=== PATIENT | female | born 2000 | race Two or more races ===

== ENCOUNTER 2021-07-30 01:53 | Emergency (ER) | payer OTHER, MEDICAID ==
[~2021-07-30] VITALS: Ht 152.4 cm; Wt 56.7 kg
[2021-07-30] MEDS ORDERED: LORazepam 2MG/ML-1ML VIAL ONE (01:58)
[2021-07-30] MEDS ORDERED: LORazepam 2MG/ML-1ML VIAL IM ONE (02:00)
[2021-07-30 02:35] LABS: Basophils # (auto) 0.1 10 ^3/uL (0-0.2); Basophils % (auto) 1.3 % (0.0-2.0); Eosinophils # (auto) 0.1 10 ^3/uL (0-0.8); Eosinophils % (auto) 0.7 % (0.0-7.0); Hematocrit 39.2 % (36.0-46.0); Hemoglobin 13.6 g/dL (12.2-16.2); Lymphocytes # (auto) 2.3 10 ^3/uL (0.4-5.4); Lymphocytes % (auto) 20.5 % (10.0-50.0); Mean Corpuscular Hemoglobin 30.7 pg (28.0-32.0); Mean Corpuscular Hgb Conc. 34.6 g/dL (32.0-36.0); Mean Corpuscular Volume 88.6 fL (80.0-100.0); Monocytes # (auto) 0.3 10 ^3/uL (0-1.3); Monocytes % (auto) 3.1 % (0.0-12.0); Neutrophils # (auto) 8.3 10 ^3/uL (1.6-8.6); Neutrophils % (auto) 74.4 % (37.0-80.0); Nucleated Red Blood Cells % 0.2 %; Red Blood Cells 4.43 10^6/uL (4.0-5.20); Red Cell Distribution Width 13.1 % (11.8-14.3); White Blood Cell 11.1 10^3/uL (4.4-10.8)
[2021-07-30 02:52] LABS: BUN/Creatinine Ratio 12.9; Calcium 8.7 mg/dL (8.5-10.1); Potassium 3.5 mmol/L (3.5-5.1)
[2021-07-30 02:55] LABS: Bilirubin, Total 0.2 mg/dL (0.2-1.0); Total Protein 7.8 g/dL (6.4-8.2)
[2021-07-30] MEDS ORDERED: SODIUM CHLORIDE 0.9% 1,000 ML IV ONE ×2 (03:00→06:45)
[2021-07-30 03:09] LABS: Amphetamine Screen, Urine NEGATIVE (NEGATIVE); Barbiturate Scree,Urine NEGATIVE (NEGATIVE); Benzodiazephine Screen, Urine NEGATIVE (NEGATIVE); Cannabinoid Screen, Urine NEGATIVE (NEGATIVE); Cocaine Screen, Urine NEGATIVE (NEGATIVE); Opiate Scree,Urine NEGATIVE (NEGATIVE); Phencyclidine Screen, Urine NEGATIVE (NEGATIVE)
[2021-07-30 03:12] LABS: Salicylate < 1.7 mg/dL (2.8-20.0)
[2021-07-30 03:13] LABS: Acetaminophen < 2.0 ug/mL (10-30)
[2021-07-30 03:14] LABS: Urine Bacteria NONE SEEN /hpf (None Seen); Urine Blood Negative /uL (Negative); Urine Specific Gravity 1.008 (1.001-1.035); Urine WBC 4 /hpf (0 - 5)
[2021-07-30] MEDS ORDERED: ONDANSETRON HCL 4 MG/2 ML VIAL ONE (09:56)
[2021-07-30] MEDS ORDERED: ONDANSETRON HCL 4 MG/2 ML VIAL IV ONE (10:00)
[2021-07-30 19:59] VITALS: BP 104/56
== END 2021-07-30 23:52 | disposition home or self-care (01) ==
LOC: ER 02:01
DX: F10.129 Alcohol abuse with intoxication, unspecified (principal); Y90.8 Blood alcohol level of 240 mg/100 ml or more
CPT/HCPCS: 36415; 80053; 80307; 80320; 80329; 81001; 81025; 85025; 96361; 96372; 96374; 99285; J2060; J2405; J7030

== ENCOUNTER 2023-03-05 17:25 | Emergency (ER) | payer MEDICAID, OTHER ==
[~2023-03-05] VITALS: Ht 149.9 cm; Wt 55.8 kg
[2023-03-05 18:52] VITALS: BP 161/85; PULSE 128; RESP 16; TEMP 98.2; O2SAT 97
[2023-03-05] MEDS ORDERED: cefTRIAXone SOD 1,000 MG VL IM ONE (19:00)
[2023-03-05] MEDS ORDERED: HYDROcodone-ACET 5/325MG TAB PO ONE (19:00)
[2023-03-05] MEDS ORDERED: BACDST PO (19:35)
[2023-03-05] MEDS ORDERED: MUPI2OIN2 EX (19:35)
[2023-03-05] MEDS ORDERED: HYDR-4902 PO (19:35)
[2023-03-05] MEDS ORDERED: CLIN-203 PO (19:35)
== END 2023-03-05 20:08 | disposition home or self-care (01) ==
LOC: ER 17:25
DX: L02.11 Cutaneous abscess of neck (principal)
CPT/HCPCS: 96372; 99283; J0696

== ENCOUNTER 2024-12-14 23:10 | Emergency (ER) | payer MEDICAID ==
[~2024-12-14] VITALS: Ht 142.2 cm; Wt 59.2 kg
[~2024-12-14 23:10] MED LIST: CEPH500T PO
--- NOTE | 2024-12-14 23:34 | ED.PDOC ---
HPI (NEURO) HPI Comments 24-year-old female who came to ER for left-sided numbness. About 12 hours ago, patient woke up with left-sided numbness, from the left side of her face down to her left foot. Also complaining of left-sided headaches. [place] that her entire left side is tingling. Denies any weakness. Chief Complaint: Left Sided numbness Time Seen by MD: 23:33 Primary Care Provider: LAYLA Huang Notes: Nurses Notes Information Source: Patient Mode of Arrival: Ambulatory Severity: Moderate Dizziness/Weakness Severity: Does not affect activitie Headache Severity: Moderate Timing: Hours Duration: Since onset Numbness Location: (L) Sided Circumstances: Spontaneous Symptoms: Numbness (Left-sided) Associated Signs and Symptoms: Numbness (Left-sided) Past Medical History PAST MEDICAL HISTORY: Anxiety, Depression, Seizures Surgical History: Denies all surgeries APPLIANCE ASSEMBLER History: No Pertinent APPLIANCE ASSEMBLER History Family History Family History: Reviewed,noncontributory to illness Social History Smoker: Non-Smoker Alcohol: Occasionally Drugs: Denies Drug Use Lives In: Home Constitutional: denies: chills, diaphoresis, fatigue, fever, malaise, sweats, weakness, others EENTM: denies: blurred vision, double vision, ear bleeding, ear discharge, ear drainage, ear pain, ear ringing, eye pain, eye redness, hearing loss, mouth pain, mouth swelling, nasal discharge, nose bleeding, nose congestion, nose pain, photophobia, tearing, throat pain, throat swelling, voice changes, others Cardiovascular: denies: chest pain, dizzy spells, diaphoresis, Dyspnea on exertion, edema, irregular heart beat, left arm pain, lightheadedness, palpitations, PND, syncope, others Gastrointestinal: denies: abdomen distended, abdominal pain, blood streaked bowels, constipated, diarrhea, dysphagia, difficulty swallowing, hematemesis, melena, nausea, poor appetite, poor fluid intake, rectal bleeding, rectal pain, vomiting, others Genitourinary: denies: abnormal vagina bleeding, burning, dyspareunia, dysuria, flank pain, frequency, hematuria, incontinence, pain, , vagina discharge, urgency, others Neurological: reports: headache, left sided numbness, tingling; denies: dizziness, fainting, left sided weakness, numbness, paresthesia, pre-existing deficit, right sided numbness, right sided weakness, seizure, speech problems, tremors, weakness, others Musculoskeletal: denies: back pain, gout, joint pain, joint swelling, muscle pain, muscle stiffness, neck pain, others Integumetry: denies: bruises, change in color, change in hair/nails, dryness, laceration, lesions, lumps, rash, wounds, others Allergic/Immunocompromised: denies: Difficulty Healing, Frequent Infections, Hives, Itching, others Hematologic/Lymphatic: denies: anemia, blood clots, easy bleeding, easy bruising, swollen glands, others Endocrine: denies: excessive hunger, excessive sweating, excessive thirst, excessive urination, flushing, intolerance to cold, intolerance to heat, u nexplained weight gain, unexplained weight loss, others Psychiatric: denies: anxiety, bipolar disorder, depression, hopeless, panic disorder, schizophrenia, sleepless, suicidal, others Physical Exam General Appearance: No Apparent Distress, Normal HEENT: Normal ENT Inspection, Pharynx Normal, TMs Normal Neck: Full Range of Motion, Non-Tender, Normal, Normal Inspection Respiratory: Chest Non-Tender, Lungs Clear, No Accessory Muscle Use, No Respiratory Distress, Normal Breath Sounds Cardiovascular: No Edema, No JVD, No Murmur, No Gallop, Normal Peripheral Pulses, Regular Rate/Rhythm Breast Exam: Deferred Gastrointestinal: No Organomegaly, Non Tender, No Pulsatile Mass, Normal Bowel Sounds, Soft Genitalia: Deferred Pelvic: Deferred Rectal: Deferred Extremities: No calf tenderness, Normal capillary refill, Normal inspection, Normal range of motion, Non-tender, No pedal edema Musculoskeletal : Apperance: Normal Neurologic: Alert, rubber curer II-XII nml as Tested, No Motor Deficits, Normal Affect, Normal Mood, No Sensory Deficits Cerebellar Function: Normal Reflexes: Normal Skin: Dry, Normal Color, Warm Lymphatic: No Adenopathy Was a procedure done? Was a procedure done?: No Differential Diagnosis (SZ) CVA: CVA, Electrolyte Imbalance, Encephalopathy, Hypoglycemia, Hypoxemia, TIA X-Ray, Labs, Meds, VS Vital Signs Date Time Temp Pulse Resp B/P (MAP) Pulse Ox O2 Delivery O2 Flow Rate FiO2 12/15/24 02:18 94 18 98 Room Air 12/15/24 02:18 97.8 94 18 117/61 (79) 98 97.8 12/14/24 23:31 130 12/14/24 23:10 98.8 136 98 161/77 98 98.8 Lab Test 12/14/24 23:13 Range/Units White Blood Count 12.7 H 4.4-10.8 10^3/uL Red Blood Count 4.79 4.0-5.20 10^6/uL Hemoglobin 14.3 12.2-16.2 g/dL Hematocrit 41.9 36.0-46.0 % Mean Corpuscular Volume 87.5 80.0-100.0 fL Mean Corpuscular Hemoglobin 29.9 28.0-32.0 pg Mean Corpuscular Hemoglobin Concent 34.1 32.0-36.0 g/dL Red Cell Distribution Width 12.6 11.8-14.3 % Platelet Count 350 140-450 10^3/uL Mean Platelet Volume 8.8 6.9-10.8 fL Neutrophils (%) (Auto) 75.0 37.0-80.0 % Lymphocytes (%) (Auto) 20.2 10.0-50.0 % Monocytes (%) (Auto) 3.8 0.0-12.0 % Eosinophils (%) (Auto) 0.6 0.0-7.0 % Basophils (%) (Auto) 0.4 0.0-2.0 % Neutrophils # (Auto) 9.5 H 1.6-8.6 10 ^3/uL Lymphocytes # (Auto) 2.6 0.4-5.4 10 ^3/uL Monocytes # (Auto) 0.5 0-1.3 10 ^3/uL Eosinophils # (Auto) 0.1 0-0.8 10 ^3/uL Basophils # (Auto) 0 0-0.2 10 ^3/uL Nucleated Red Blood Cells 0.0 % Sodium Level 139 136-145 mmol/L Potassium Level 4.0 3.5-5.1 mmol/L Chloride Level 104 98-107 mmol/L Carbon Dioxide Level 26 20-31 mmol/L Anion Gap 9 5-15 Blood Urea Nitrogen 9 9-23 mg/dL Creatinine 0.71 0.550-1.02 mg/dL Glomerular Filtration Rate Calc 121 >90 mL/min BUN/Creatinine Ratio 12.7 10.0-20.0 Serum Glucose 110 H 74-106 mg/dL Calcium Level 10.4 8.7-10.4 mg/dL Magnesium Level 1.8 1.6-2.6 mg/dL Total Bilirubin 0.4 0.2-1.0 mg/dL Aspartate Amino Transferase (AST) 24 13-40 U/L Alanine Aminotransferase (ALT) 31 7-40 U/L Alkaline Phosphatase 121 H 46-116 U/L Total Protein 8.5 H 5.7-8.2 g/dL Albumin 5.1 H 3.2-4.8 g/dL Time of 1ST Reevaluation: 23:28 Reevaluation 1ST: Unchanged Patient Education/Counseling: Diagnosis, Treatment Family Education/Counseling: No Family Present Departure 1 Departure Time of Disposition: 01:30 Impression: Primary Impression: Paresthesia Disposition: 01 HOME / SELF CARE / HOMELESS Condition: Stable Discharged With: Self Critical Care Note Critical Care Time?: No Stability Stability form required: No Heart Score Heart Score: Heart Score Response (Comments) Value History N/A 0 EKG N/A 0 Age N/A 0 Risk Factors N/A 0 Troponin N/A 0 Total 0 I personally scribed for DENNY SCHROEDER MD ([email or web address]) on 12/14/24 at 23:34. Electronically submitted by Sherwin Rodriguez ([email or web address]). DENNY SCHROEDER MD Dec 14, 2024 23:34
[2024-12-15 00:22] LABS: Hematocrit 41.9 % (36.0-46.0); Hemoglobin 14.3 g/dL (12.2-16.2); Mean Corpuscular Hemoglobin 29.9 pg (28.0-32.0); Mean Corpuscular Volume 87.5 fL (80.0-100.0); Nucleated Red Blood Cells % 0.0 %
--- NOTE | 2024-12-15 00:32 | DVH ---
CLINICAL HISTORY: ALOC TECHNIQUE: Helical imaging carried out from skull base to vertex without intravenous contrast. This e xam was performed according to our departmental dose optimization program. Up-to-date CT equipment an d radiation dose reduction techniques are utilized as appropriate. 55.24 CTDIVol: 55.24 mGy DLP: 978.23 mGy-cm WID: COMPARISON: None FINDINGS: The ventricles and subarachnoid spaces are normal in size and configuration. There is no midline chintan ft or mass effect. The dunn white matter interfaces are maintained. The basal cisterns are patent. Th ere is no evidence of acute intracranial hemorrhage or extra-axial fluid collection. The mastoid air cells and visualized paranasal sinuses are well-aerated. IMPRESSION: 1. No acute intracranial abnormality.
[2024-12-15 00:46] LABS: Alanine Aminotransferase 31 U/L (7-40); Anion Gap 9 (5-15); BUN/Creatinine Ratio 12.7 (10.0-20.0); Bilirubin, Total 0.4 mg/dL (0.2-1.0); Blood Urea Nitrogen 9 mg/dL (9-23); Calcium 10.4 mg/dL (8.7-10.4); Carbon Dioxide 26 mmol/L (20-31); Chloride 104 mmol/L (98-107); Magnesium 1.8 mg/dL (1.6-2.6); Potassium 4.0 mmol/L (3.5-5.1); Sodium 139 mmol/L (136-145)
[2024-12-15 00:52] LABS: Albumin 5.1 g/dL (3.2-4.8); Alkaline Phosphatase 121 U/L (46-116); Glucose 110 mg/dL (74-106); Total Protein 8.5 g/dL (5.7-8.2)
[2024-12-15 02:18] VITALS: BP 117/61; PULSE 94; RESP 18; TEMP 97.8; O2SAT 98
== END 2024-12-15 02:20 | disposition home or self-care (01) ==
LOC: ER 23:10
DX: R20.2 Paresthesia of skin (principal); F41.9 Anxiety disorder, unspecified; F32.A Depression, unspecified; F10.90 Alcohol use, unspecified, uncomplicated; Y90.9 Presence of alcohol in blood, level not specified
CPT/HCPCS: 36415; 70450; 80053; 83735; 85025